=== PATIENT | female | born 1985 | race Caucasian/White ===

== ENCOUNTER 2019-06-13 13:03 | Emergency (ER) | payer OTHER, SELFPAY ==
--- NOTE | 2019-06-13 13:07 | DI.MRI.S_ITS ---
PROCEDURE: MR ABDOMEN PELVIS WO CON COMPARISON: OB ultrasound 01/17/2018. INDICATIONS: 18 weeks preg r/o appy FINDINGS: Liver is unremarkable. No biliary ductal dilatation. Gallbladder is nondistended. No pericholecystic fluid. No gallstones seen. Spleen is normal in size. Pancreas is unremarkable. No peripancreatic fluid collection. No pancreatic ductal dilatation. No adrenal nodule. Small simple left superior pole cyst. No hydronephrosis. The appendix is normal in caliber. No periappendiceal fluid. No dilated loops of bowel. No adenopathy. No free fluid. No hernia. No aortic aneurysm. Gravid uterus. Amniotic fluid is surgically within normal limits. Intrauterine gestation is grossly unremarkable. Posterior placenta. Cervix appears normal. Bladder is unremarkable. Ovaries are not identified. IMPRESSION: Negative exam. No acute inflammatory process. No appendicitis or cholecystitis. Comment: Findings were discussed with Yadira Copeland at the time of dictation. Dictated by: Richie Huizar M.D. on 06/13/2019 at 14:08 Approved by: Richie Huizar M.D. on 06/13/2019 at 14:49
--- NOTE | 2019-06-13 13:09 | ED.PREGNANCY ---
HPI - General Chief complaint: Abdominal Pain Stated complaint: MRI Time Seen by Provider: 06/13/19 13:07 Source: patient, EMS and old records reviewed Limitations: no limitations History of Present Illness HPI Narrative: Patient is a 33-year-old female currently 18 weeks , presenting with abdominal pain off and on for the last 2 weeks. Mostly wakes her up at night. She says she started taking aspirin as preventative for preeclampsia. She has never had preeclampsia but has had elevated blood pressure with all of her pregnancies. She has been taking have aspirin no known last 6-7 weeks is something new for her. She is taking Tums as needed. Her this morning her pain got a little worse and went to [facility] for evaluation. She had blood work and ultrasound which were negative. There was concern for possible appendicitis. There MRI machine was down was transferred from their facility to our facility for MRI and rule out appy. Patient had ultrasound which was essentially negative, but appendix was not seen she has mild leukocytosis of 13 but no other abnormal Related Data Allergies Allergy/AdvReac Type Severity Reaction Status Date / Time Penicillins Allergy Verified 06/13/19 13:12 Review of Systems Review of Systems Narrative: GENERAL: Denies chills, fatigue, malaise, fever, sweats, travel HEENT: Denies sinus pain, ear pain, sore throat, difficulty swallowing, neck pain RESPIRATORY: Denies dyspnea, cough, wheezing, hemoptysis, sputum. CARDIOVASCULAR: Denies chest pain, palpitations, orthopnea, edema GASTROINTESTINAL: See HPI : Denies dysuria, frequency, incontinence, hematuria, urinary retention, flank pain. MUSCULOSKELETAL: Denies weakness, joint pain, or bony pain SKIN: No rash, no erythema, no pruritus NEUROLOGIC: Denies weakness, dizziness, headache, numbness, change in speech, confusion PSYCHIATRIC: No concerning psychosocial issues. 12 point review of systems is negative except for those stated above and HPI Exam Initial Vital Signs Initial Vital Signs: Vital Signs Temperature 97.9 F 06/13/19 13:12 Pulse Rate 85 06/13/19 13:12 Respiratory Rate 16 06/13/19 13:12 Blood Pressure 114/83 06/13/19 13:12 Pulse Oximetry 97 06/13/19 13:12 GENERAL: Well-appearing, well-nourished and in no acute distress. HEENT: Head atraumatic,EOMI, pupils reactive, face symmetric, moist mucous membranes CARDIOVASCULAR: Regular rate and rhythm without murmurs, rubs or gallops. RESPIRATORY: Breath sounds equal bilaterally, no wheezes rales or rhonchi. ABDOMEN: Soft, gravid my for quadrant tenderness no lower abdominal tenderness : No CVA tenderness EXTREMITIES: Normal range of motion, no clubbing or edema. Neurovascularly intact NEUROLOGICAL: Alert and oriented x4.Normal gait and speech. Cranial nerves II through XII grossly intact. SKIN: Warm, dry, no laceration, no petechiae, no rashes or lesions. Course Orders Ordered: ED Orders 06/13/19 13:07 MR abdomen pelvis wo con Stat Vital Signs Vital signs: Vital Signs - 8 hr 06/13/19 13:12 06/13/19 15:14 Temperature 97.9 F Pulse Rate 85 97 H Respiratory Rate 16 16 Blood Pressure 114/83 Blood Pressure [Left Arm] 112/78 Pulse Oximetry 97 98 MDM - OB/Uterine Contractions Imaging Data MR abdomen: Radiologist's impression: PROCEDURE: MR ABDOMEN PELVIS WO CON COMPARISON: OB ultrasound 01/17/2018. INDICATIONS: 18 weeks preg r/o appy FINDINGS: Liver is unremarkable. No biliary ductal dilatation. Gallbladder is nondistended. No pericholecystic fluid. No gallstones seen. Spleen is normal in size. Pancreas is unremarkable. No peripancreatic fluid collection. No pancreatic ductal dilatation. No adrenal nodule. Small simple left superior pole cyst. No hydronephrosis. The appendix is normal in caliber. No periappendiceal fluid. No dilated loops of bowel. No adenopathy. No free fluid. No hernia. No aortic aneurysm. Gravid uterus. Amniotic fluid is surgically within normal limits. Intrauterine gestation is grossly unremarkable. Posterior placenta. Cervix appears normal. Bladder is unremarkable. Ovaries are not identified. IMPRESSION: Negative exam. No acute inflammatory process. No appendicitis or cholecystitis. Comment: Findings were discussed with Yadira Copeland at the time of dictation. Dictated by: Richie Huizar M.D. on 06/13/2019 at 14:08 MDM Narrative Medical decision making narrative: The patient is had thorough workup between both emergency department including blood work ultrasound and MRI. At this time no identifiable cause of her abdominal discomfort. She has been taking aspirin for preeclampsia possible gastritis discomfort. Recommend she follow up with her OBGYN. Discharge Plan Departure Patient Disposition: Home Clinical Impression: Abdominal pain affecting Discharge Date/Time: 06/13/19 15:47 Instructions: DI for -- Discomforts and Remedies Activity Restrictions/Additional Instructions: *You have been diagnosed with abdominal pain in *What to do: This man may not be related to the aspirin you are taking. You may take ranitidine 150 mg twice a day to help with acid reflux and the aspirin. *Continue to take medications as directed Ranitidine 150 mg twice daily *Follow up with your primary care provider in 2-3 days follow-up with your OBGYN *Return to ER if you should have increasing abdominal pain vaginal bleeding or any new, worsening or concerning symptoms
[2019-06-13 13:12] VITALS: BP 114/83; PULSE 85; RESP 16; TEMP 36.6; O2SAT 97; BMI 26.7
[2019-06-13 15:14] VITALS: BP 112/78; PULSE 97; RESP 16; O2SAT 98
== END 2019-06-13 15:47 | disposition home or self-care (01) ==
PROVIDERS: Emergency Provider Emergency Medicine
DX: O26.892 Other specified pregnancy related conditions, second trimester (principal); R10.9 Unspecified abdominal pain; Z3A.18 18 weeks gestation of pregnancy
CPT/HCPCS: 72195; 99282; 99283

== ENCOUNTER → 2020-01-06 15:22 | Outpatient (CLI) | payer OTHER, SELFPAY ==
[2020-01-07 09:19] LABS: COVID19 Sendout Not Detected
== END ==
PROVIDERS: Visit Provider Registered Nurse
DX: Z11.59 Encounter for screening for other viral diseases (principal)
CPT/HCPCS: 87635